=== PATIENT | female | born 2000 | race Caucasian/White ===

== ENCOUNTER 2020-05-17 21:25 | Emergency (ER) | payer OTHER ==
[~2020-05-17] VITALS: Ht 170.2 cm; Wt 56.8 kg
[2020-05-17 21:36] VITALS: TEMP 98.7
[2020-05-17 23:00] VITALS: BP 116/64; PULSE 49
== END 2020-05-17 23:00 | disposition home or self-care (01) ==
LOC: COL.ER 21:25
DX: S93.104A Unspecified dislocation of right toe(s), initial encounter (principal); W01.0XXA Fall on same level from slipping, tripping and stumbling without subsequent striking against object, initial encounter